=== PATIENT | female | born 1960 | race Caucasian/White ===

== ENCOUNTER 2020-06-18 09:17 | Outpatient (CLI) | payer BC, SELFPAY ==
[2020-06-18 10:15] LABS: Alanine Aminotransferase 17 U/L (4-35); Alkaline Phosphatase 130 U/L (38-126); Anion Gap 6 mmol/L (8-16); Aspartate Amino Transferase 24 U/L (14-36); Bilirubin,Total 0.5 mg/dL (0.2-1.3); Blood Urea Nitrogen 30 mg/dL (7-17); Calcium 9.7 mg/dL (8.4-10.2); Carbon Dioxide 27 mmol/L (22-30); Chloride 103 mmol/L (98-107); Cholesterol 226 mg/dL (0-200); Estimated Glomerular Filt Rate 51; Glucose 353 mg/dL (65-105); HDL Direct 40 mg/dL; Potassium 5.1 mmol/L (3.4-5.0); Sodium 136 mmol/L (137-145); Triglycerides 202 mg/dL (<150)
[2020-06-18 10:16] LABS: Hemoglobin A1C 11.4 % (<5.7)
[2020-06-18 10:26] LABS: LDL Cholesterol Direct 127 mg/dL
[2020-06-22 00:23] LABS: Vitamin D 1,25 (OH)2 Total 26 pg/mL (18-72); Vitamin D2 1,25 (OH)2 <8 pg/mL; Vitamin D3 1,25 (OH)2 26 pg/mL
== END 2020-06-18 09:18 | disposition home or self-care (01) ==
PROVIDERS: PCP Emergency Medicine; Visit Provider Emergency Medicine
DX: E55.9 Vitamin D deficiency, unspecified (principal); E78.5 Hyperlipidemia, unspecified; E11.9 Type 2 diabetes mellitus without complications
CPT/HCPCS: 36415; 80053; 80061; 82652; 83036

== ENCOUNTER 2020-11-15 06:46 | Outpatient (CLI) | payer BC, SELFPAY ==
[2020-11-15 07:37] LABS: Alanine Aminotransferase 15 U/L (4-35); Albumin Level 4.6 g/dL (3.5-5.1); Alkaline Phosphatase 84 U/L (38-126); Anion Gap 10 mmol/L (8-16); Aspartate Amino Transferase 21 U/L (14-36); Bilirubin,Total 0.2 mg/dL (0.2-1.3); Blood Urea Nitrogen 39 mg/dL (7-17); Calcium 9.8 mg/dL (8.4-10.2); Carbon Dioxide 23 mmol/L (22-30); Chloride 111 mmol/L (98-107); Cholesterol 173 mg/dL (0-200); Estimated Glomerular Filt Rate 42; Glucose 87 mg/dL (65-110); HDL Direct 31 mg/dL; Potassium 5.2 mmol/L (3.4-5.0); Sodium 144 mmol/L (137-145); Triglycerides 193 mg/dL (<150)
[2020-11-15 07:48] LABS: LDL Cholesterol Direct 80 mg/dL
[2020-11-15 09:59] LABS: Hemoglobin A1C 4.6 % (<5.7)
== END 2020-11-15 06:47 | disposition home or self-care (01) ==
PROVIDERS: PCP Emergency Medicine; Visit Provider Emergency Medicine
DX: E78.1 Pure hyperglyceridemia (principal); E11.9 Type 2 diabetes mellitus without complications
CPT/HCPCS: 36415; 80053; 80061; 83036

== ENCOUNTER 2021-02-25 07:08 | Outpatient (CLI) | payer BC, SELFPAY ==
[2021-02-25 07:34] LABS: Hemoglobin A1C 4.9 % (<5.7)
[2021-02-25 07:48] LABS: Alanine Aminotransferase 14 U/L (4-35); Albumin Level 4.4 g/dL (3.5-5.1); Alkaline Phosphatase 88 U/L (38-126); Anion Gap 10 mmol/L (8-16); Aspartate Amino Transferase 22 U/L (14-36); Bilirubin,Total 0.3 mg/dL (0.2-1.3); Blood Urea Nitrogen 34 mg/dL (7-17); Calcium 9.4 mg/dL (8.4-10.2); Carbon Dioxide 22 mmol/L (22-30); Chloride 111 mmol/L (98-107); Cholesterol 205 mg/dL (0-200); Estimated Glomerular Filt Rate 46; Glucose 63 mg/dL (65-110); HDL Direct 39 mg/dL; Potassium 5.1 mmol/L (3.4-5.0); Sodium 143 mmol/L (137-145); Triglycerides 126 mg/dL (<150)
[2021-02-25 07:59] LABS: LDL Cholesterol Direct 94 mg/dL
== END 2021-02-25 07:09 | disposition home or self-care (01) ==
PROVIDERS: PCP Emergency Medicine; Visit Provider Emergency Medicine
DX: E78.1 Pure hyperglyceridemia (principal); E11.9 Type 2 diabetes mellitus without complications
CPT/HCPCS: 36415; 80053; 80061; 83036

== ENCOUNTER 2021-04-05 08:05 | Outpatient (CLI) | payer BC, SELFPAY ==
--- NOTE | 2021-04-05 | ECG_ITS ---
Measurements Intervals [place] Rate: 59 P: 1 SD: 145 QRS: 56 QRSD: 98 T: 40 QT: 393 QTc: 392 Interpretive Statements SINUS OR ECTOPIC ATRIAL BRADYCARDIA CANNOT RULE OUT SEPTAL INFARCT, AGE INDETERMINATE BASELINE ARTIFACT- V3 ABNORMAL ECG Electronically Signed On 04-05-2021 10:44:15 RESERVATIONS SPECIALIST by Ray Stock D.O.
--- NOTE | ~2021-04-05 | US_ITS ---
EXAMINATION: US art doppler w sheila ANDREWS DATE: 04/05/2021 09:02 INDICATION: Peripheral arterial occlusive disease TECHNIQUE: Segmental pressures and plethysmographic and Doppler waveforms of the brachial and lower e xtremity arteries were obtained. COMPARISON: None. FINDINGS: Right and left brachial artery pressures of 173 mm Hg and 159 mm Hg, respectively, are concordant (no rmal difference <= 30 mmHg). The right and left high-thigh pressure indices are unable to be obtained due to inability to occlude the vessels. The right ankle-brachial index (VERONIKA) is at least 1.05 (normal >= 0.9-1) based upon the pressure in th e right dorsalis pedis artery with the right posterior tibial artery unable to be occluded. The right great toe-brachial index (TBI) is 0.68 (normal >= 0.6-0.8). Arterial waveforms are biphasic with ondina sk systolic upstrokes throughout the arteries of the right lower limb. The left VERONIKA is unable to be obtained due to inability to occlude the vessels at the left ankle. The left TBI is 0.64. Arterial waveforms are biphasic with brisk systolic upstrokes throughout the arteri es of the left lower limb.. IMPRESSION: 1. Normal bilateral TBIs and right VERONIKA with indeterminate left VERONIKA due to inability to occlude the ve ssels at the left ankle.. No significant arterial occlusive disease to either lower limb. Reviewed, dictated and finalized at location A. [facility] IMPRESSION: 1. Normal bilateral TBIs and right VERONIKA with indeterminate left VERONIKA due to inabi lity to occlude the vessels at the left ankle.. No significant arterial occlusi ve disease to either lower limb.
[2021-04-05 10:40] LABS: Alanine Aminotransferase 13 U/L (4-35); Albumin Level 4.5 g/dL (3.5-5.1); Alkaline Phosphatase 114 U/L (38-126); Anion Gap 9 mmol/L (8-16); Aspartate Amino Transferase 22 U/L (14-36); Bilirubin,Total 0.4 mg/dL (0.2-1.3); Blood Urea Nitrogen 33 mg/dL (7-17); Calcium 9.2 mg/dL (8.4-10.2); Carbon Dioxide 21 mmol/L (22-30); Chloride 113 mmol/L (98-107); Estimated Glomerular Filt Rate 57; Glucose 113 mg/dL (65-110); Potassium 4.4 mmol/L (3.4-5.0); Sodium 143 mmol/L (137-145)
== END 2021-04-05 08:06 | disposition home or self-care (01) ==
LOC: ANHIMG 08:08
PROVIDERS: PCP Emergency Medicine; Visit Provider Podiatrist Foot & Ankle Surgery
DX: I73.9 Peripheral vascular disease, unspecified (principal); R03.0 Elevated blood-pressure reading, without diagnosis of hypertension; R94.31 Abnormal electrocardiogram [ECG] [EKG]; R00.1 Bradycardia, unspecified
CPT/HCPCS: 36415; 80053; 93005; 93923

== ENCOUNTER 2021-09-30 07:13 | Outpatient (CLI) | payer BC, SELFPAY ==
[2021-09-30 08:35] LABS: Alanine Aminotransferase 13 U/L (6-35); Albumin Level 4.2 g/dL (3.5-5.1); Alkaline Phosphatase 75 U/L (38-126); Anion Gap 11 mmol/L (8-16); Aspartate Amino Transferase 21 U/L (14-36); Bilirubin,Total 0.3 mg/dL (0.2-1.3); Blood Urea Nitrogen 42 mg/dL (7-17); Calcium 8.8 mg/dL (8.4-10.2); Carbon Dioxide 22 mmol/L (22-30); Chloride 109 mmol/L (98-107); Estimated Glomerular Filt Rate 46; Glucose 121 mg/dL (65-110); Potassium 5.2 mmol/L (3.4-5.0); Sodium 142 mmol/L (137-145)
[2021-10-03 14:43] LABS: Vitamin D 1,25 (OH)2 Total 14 pg/mL (18-72); Vitamin D2 1,25 (OH)2 <8 pg/mL; Vitamin D3 1,25 (OH)2 14 pg/mL
== END 2021-09-30 07:14 | disposition home or self-care (01) ==
LOC: ANHLAB 07:14
PROVIDERS: PCP Emergency Medicine; Visit Provider Emergency Medicine
DX: E78.1 Pure hyperglyceridemia (principal); E55.9 Vitamin D deficiency, unspecified
CPT/HCPCS: 36415; 80053; 82652

== ENCOUNTER 2022-01-09 07:02 | Outpatient (CLI) | payer BC, SELFPAY ==
[2022-01-09 07:58] LABS: Alanine Aminotransferase 15 U/L (6-35); Albumin Level 4.4 g/dL (3.5-5.1); Alkaline Phosphatase 70 U/L (38-126); Anion Gap 11 mmol/L (8-16); Aspartate Amino Transferase 25 U/L (14-36); Bilirubin,Total 0.4 mg/dL (0.2-1.3); Blood Urea Nitrogen 42 mg/dL (7-17); Carbon Dioxide 23 mmol/L (22-30); Chloride 108 mmol/L (98-107); Cholesterol 211 mg/dL (0-200); Estimated Glomerular Filt Rate 46; Glucose 119 mg/dL (65-110); HDL Direct 46 mg/dL; Potassium 4.6 mmol/L (3.4-5.0); Sodium 142 mmol/L (137-145); Triglycerides 116 mg/dL (<150)
[2022-01-09 08:10] LABS: LDL Cholesterol Direct 91 mg/dL
== END 2022-01-09 07:03 | disposition home or self-care (01) ==
LOC: ANHLAB 07:04
PROVIDERS: PCP Emergency Medicine; Visit Provider Emergency Medicine
DX: E78.5 Hyperlipidemia, unspecified (principal)
CPT/HCPCS: 36415; 80053; 80061